=== PATIENT | female | born 1975 | race Caucasian/White ===

== ENCOUNTER 2019-09-18 17:46 | Emergency (ER) | payer OTHER, SELFPAY ==
[2019-09-18 17:50] VITALS: BP 130/88; PULSE 82; RESP 19; TEMP 36.8; O2SAT 100
[2019-09-18] MEDS: KETOROLAC 15 MG/ML VIAL (*BKC) IV PUSH (18:35)
[2019-09-18] MEDS: SODIUM CHLORIDE 0.9% IV 1,000 ML 999 ML IV CONT (18:35)
[2019-09-18] MEDS: ONDANSETRON INJ 4 MG/2 ML VIAL IV PUSH (18:35)
--- NOTE | 2019-09-18 19:15 | ED.HA ---
HPI - Headache General Chief Complaint: Headache Stated Complaint: migraine Time Seen by Provider: 09/18/19 17:54 Source: patient Mode of arrival: ambulatory Limitations: no limitations History of Present Illness HPI Narrative: Patient with history of migraines presents with chief complaint of right temporal migraine that began at approximately 3 AM this morning. Patient states that she has a history of migraines that presented various areas in his medicine is different than others. Patient denies this time sensitivity to sample reports history of January. Patient denies any changes to vision or hearing. Patient reports some nausea and vomiting. Patient states she takes Topamax daily but she took Imitrex which did not relieve her symptoms. Patient states she also took Tylenol. Patient states she has been laying around a lot today so she also has muscle stiffness to the left side of her neck and shoulder. Patient denies chest pain, shortness of breath, weakness, or any other symptoms.She denies any head injury or impact. Related Data Home Medications Medication Instructions Recorded Confirmed topiramate [Topamax] 50 mg PO TID 09/18/19 09/18/19 Allergies Allergy/AdvReac Type Severity Reaction Status Date / Time amoxicillin Allergy Hives Verified 09/18/19 17:53 Review of Systems Review of Systems: Narrative: CONSTITUTIONAL: Denies fever, chills, or sweats. EYES: Reports photophobic Denies visual changes, redness, or discharge. ENT: Denies rhinorrhea, congestion, sore throat, or otalgia. CARDIOVASCULAR: Denies chest pain, palpitations, or edema. RESPIRATORY: Denies cough or dyspnea. GASTROINTESTINAL: Reports nausea and vomiting Denies abdominal pain or diarrhea. GENITOURINARY: Denies dysuria or hematuria. SKIN: Denies rash or itching. MUSCULOSKELETAL: Denies back pain, joint pain, or myalgia. NEUROLOGIC: Reports headache, Denies numbness, dizziness, or weakness. PSYCHIATRIC: Denies anxiety or depression. FOR[facility]LY [facility], [facility] Past Medical History Medical History (Updated 09/18/19 @ 19:23 by Damián Barger PA-C) Migraines Social History Social History Gender identity (if verbalized by the patient): Female Exam Narrative: Exam Narrative: GENERAL: Well-appearing, well-nourished, and in no acute distress. Sheilding eyes from light. HEAD: Normocephalic, atraumatic. EYES: PERRLA and EOMI. ENT: Nares clear, no rhinorrhea or epistaxis. Mucous membranes moist. Oropharynx without tonsillar hypertrophy exudate or other lesions. Bilateral TMs pearly sutton nonbulging CHEST: Clear to auscultation. No respiratory distress. No wheezes rales or rhonchi HEART: Regular rate and rhythm. EXTREMITIES: Normal range of motion. No edema. SKIN: Warm, dry, no rash. NEURO: No focal deficits. Alert and oriented x3. PSYCH: Normal mood and affect. Course Vital Signs Vital signs: Vital Signs Temperature 98.3 F 09/18/19 17:50 Pulse Rate 82 09/18/19 17:50 Respiratory Rate 19 09/18/19 17:50 Blood Pressure 130/88 09/18/19 17:50 Pulse Oximetry 100 09/18/19 17:50 Temperature 98.3 F 09/18/19 17:50 Pulse Rate 82 09/18/19 17:50 Respiratory Rate 19 09/18/19 17:50 Blood Pressure 130/88 09/18/19 17:50 Pulse Oximetry 100 09/18/19 17:50 MDM - Headache MDM Narrative Medical decision making narrative: Patient verbalized that her migraine has resolved. Patient states she is ready to be discharged home at this time. Discussed patient taking her daily migraine medications and migraine abortive medications. Instructed patient to return to emergency department if she develops any emergent symptoms. Differential Diagnosis Differential diagnosis: Likely migraine, tension headache, subarachnoid hemorrhage, meningitis and postconcussion syndrome Discharge Plan Discharge Clinical Impression: Migraines Qualifiers: Migraine type: without aura Status migrainosus presence: without status migrainosus Intractability: not intracta
== END 2019-09-18 20:31 | disposition home or self-care (01) ==
PROVIDERS: Emergency Provider Emergency Medicine
DX: G43.009 Migraine without aura, not intractable, without status migrainosus (principal)
CPT/HCPCS: 96361; 96374; 96375; 99284; J1200; J1885; J2405; J7030

== ENCOUNTER 2021-10-11 06:44 | Emergency (ER) | payer OTHER, SELFPAY ==
[2021-10-11] VITALS (100 sets, daily range): BP systolic 119–156; BP diastolic 87–123; PULSE 70–112; RESP 7–31; TEMP 36.8; O2SAT 94–100
--- NOTE | ~2021-10-11 | XR_ITS ---
EXAMINATION: XR chest 1V portable EXAM DATE: 10/11/2021 16:05 INDICATION: Left-sided chest pain. TECHNIQUE: Portable AP frontal chest x-ray was obtained. There is no prior study for comparison. FINDINGS: The lungs are clear. There are no pleural effusions. The cardiomediastinal silhouette is within normal limits. There is no pneumothorax suspected. The bones and soft tissues are unremarkab le. IMPRESSION: No acute cardiopulmonary findings. Reviewed, dictated and finalized at location A.
--- NOTE | 2021-10-11 06:46 | ECG_ITS ---
Measurements Intervals [place] Rate: 91 P: 72 FL: 154 QRS: -14 QRSD: 85 T: 60 QT: 351 QTc: 433 Interpretive Statements SINUS RHYTHM BORDERLINE LEFTWARD AXIS CANNOT RULE OUT PREVIOUS ANTEROSEPTAL ABNORMAL ECG NO PREVIOUS ECG AVAILABLE FOR COMPARISON Electronically Signed On 10-11-2021 11:14:20 CDT by Glenn Ruiz M.D.
[2021-10-11 06:59] LABS: Basophils Absolute Auto 0.1 K/mm3 (0.0-0.1); Basophils Percent Auto 0.8 % (0.2-1.2); Eosinophils Absolute Auto 0.1 K/mm3 (0-0.3); Eosinophils Percent Auto 1.4 % (0-4.4); Hematocrit 39.9 % (37.0-47.0); Hemoglobin 13.3 g/dL (12.0-15.0); Immature Granulocyte Absolute 0.02 K/mm3 (0.00-0.031); Immature Granulocyte Percent A 0.3 % (0-0.5); Lymphocytes Absolute Auto 1.64 K/mm3 (0.9-3.2); Lymphocytes Percent Auto 22.9 % (18.3-44.2); Mean Corpuscular HGB Conc 33.3 g/dl (32-36); Mean Corpuscular Hemoglobin 31.9 pg (26-34); Mean Corpuscular Volume 95.7 fl (80-100); Mean Platelet Volume 9.8 fl (7.4-10.4); Monocytes Absolute Auto 0.8 K/mm3 (0.1-0.6); Monocytes Percent Auto 11.6 % (2.6-8.5); Neutrophils Absolute Auto 4.5 K/mm3 (1.3-6.7); Platelet Count Result 262 k/mm3 (150-375); Red Blood Count 4.17 M/mm3 (4.2-5.4); Red Cell Distribution Width 12.4 % (11.5-14.5); White Blood Count 7.2 K/mm3 (4.5-10.0)
[2021-10-11] MEDS: ASPIRIN 81 MG CHEWABLE TABLET 324 MG PO (07:00)
[2021-10-11 07:08] LABS: Alanine Aminotransferase 23 U/L (4-35); Albumin Level 4.5 g/dL (3.5-5.1); Alkaline Phosphatase 57 U/L (38-126); Anion Gap 9 mmol/L (8-16); Aspartate Amino Transferase 30 U/L (14-36); Bilirubin,Total 0.3 mg/dL (0.2-1.3); Blood Urea Nitrogen 20 mg/dL (7-17); Carbon Dioxide 26 mmol/L (22-30); Chloride 103 mmol/L (98-107); Estimated CRCL calculation 46 ml/min; Estimated Glomerular Filt Rate 53; Glucose 104 mg/dL (65-110); Potassium 3.6 mmol/L (3.4-5.0); Sodium 138 mmol/L (137-145)
--- NOTE | 2021-10-11 07:18 | ED.CHESTPAIN ---
HPI - Chest Pain General Chief Complaint: Chest Pain <Oj Mcmahon DO - Last Filed: 10/11/21 18:07> Stated Complaint: chest pain <Oj Mcmahon DO - Last Filed: 10/11/21 18:07> Time Seen by Provider: 10/11/21 07:02 <Oj Mcmahon DO - Last Filed: 10/11/21 18:07> Source: RN notes reviewed <Oj Mcmahon DO - Last Filed: 10/11/21 18:07> History of Present Illness HPI narrative: Patient presents to emergency department from home for chest pain. Patient states symptoms began at approximately 530 this morning the pain is located in the left side of the chest and does not radiate described as a pressure states the pain is improved from prior but is still present states nothing makes the pain better or worse she states the pain does cause some shortness of breath and become severe. She denies any fevers or chills, cough, abdominal pain, nausea vomiting or any other symptoms. Patient does state that she had an episode of chest pain in September and at that time had not gone to the hospital to follow-up with her PCP PCP did an EKG and recommend she see cardiology and she saw Dr. Sanders at [facility]. From discussed with the patient sounds like she had an echo and is now scheduled to be getting a stress test but has not gotten stress test yet <Oj Mcmahon DO - Last Filed: 10/11/21 18:07> Related Data Home Medications: Home Medications Medication Instructions Recorded Confirmed topiramate [Topamax] 50 mg PO TID 09/18/19 10/11/21 <Oj Mcmahon DO - Last Filed: 10/11/21 18:07> Allergies/Adverse Reactions: Allergies Allergy/AdvReac Type Severity Reaction Status Date / Time amoxicillin Allergy Hives Verified 10/11/21 06:59 <Oj Mcmahon DO - Last Filed: 10/11/21 18:07> Review of Systems Review of Systems: Gen.: Denies fevers or chills ENT: Denies congestion Respiratory: Ports shortness of breath with chest pain CV: See HPI GI: Denies abdominal pain nausea, emesis or diarrhea Musculoskeletal: Denies back pain or muscle pain Neuro: Denies numbness, tingling, weakness or focal weakness Skin: Denies rash Except as documented, all other systems reviewed and negative <Oj Mcmahon DO - Last Filed: 10/11/21 18:07> [facility] Past Medical History Medical History: Medical History Migraines <DO Filiberto Albright Last Filed: 10/11/21 18:07> Social History Social History: Social History (Updated 10/11/21 @ 07:30 by Oj Mcmahon DO) Smoking status: Never smoker Gender identity (if verbalized by the patient): Female <Oj Mcmahon DO - Last Filed: 10/11/21 18:07> Exam Narrative: APPEARANCE: No acute distress, nontoxic, resting in bed EYES: EOMI HEENT: Normocephalic, atraumatic, OMM RESPIRATORY: No respiratory distress Clear to auscultation bilaterally with no rhonchi wheezing or rales. CARDIOVASCULAR: Regular rate and rhythm without murmurs rubs or gallops. ABDOMINAL: Soft, nontender, nondistended, no rebound or guarding MUSCULOSKELETAl: Moves all extremities. No clubbing, cyanosis or edema. NEURO: Awake and alert. Following commands, speech normal, no focal deficits SKIN:: Warm, dry. No rashes lesions or abrasions PSYCHIATRIC: Normal affect/mood, <Oj Mcmahon DO - Last Filed: 10/11/21 18:07> Course Course Emergency Course: Called and discussed with the [employer] for the patient was seen in the office on October 07 at that time she had a stress test ordered but is not received it yet. At this time I will admit for plan for stress test Discussed with patient need for admission discussed with patient and would like transfer to [facility] discussed with Paxton Abraham who accepts patient <Oj Mcmahon DO - Last Filed: 10/11/21 18:07> Reevaluation(s) Reevaluation #1: Patient is still awaiting a bed and t
[2021-10-11 07:20] LABS: Troponin I < 0.012 ng/mL (0.000-0.034)
[2021-10-11] MEDS: NITROGLYCERIN SL 0.4 MG TABLET SUBLINGUAL (07:35)
[2021-10-11] MEDS: KETOROLAC 30 MG/ML VIAL (*BKC) IV PUSH (07:45)
[2021-10-11 07:58] LABS: D Dimer < 0.22 ug/mL (<0.48)
--- NOTE | 2021-10-11 09:43 | PC.NURSE ---
[facility] Transfer Center called for triage and basic information on patient. Waiting on COVID result and working on bed assignment for patient.
[2021-10-11 09:50] LABS: SARS-CoV-2 RNA PCR Negative
[2021-10-11 10:17] LABS: Troponin I < 0.012 ng/mL (0.000-0.034)
[2021-10-11 13:22] LABS: Troponin I < 0.012 ng/mL (0.000-0.034)
[2021-10-12] VITALS (22 sets, daily range): BP systolic 113–128; BP diastolic 83–96; PULSE 73–97; RESP 9–25; TEMP 36.9; O2SAT 98–100
--- NOTE | 2021-10-12 01:12 | PC.NURSE ---
0038-received call from Frantz at [facility] transfer line, gave updated information and report. pt assigned to bed 920-1 at [facility]. to call report to [phone]. Attending Dr. Abraham 0045- [facility] ALS unit setup with ETA @ 0130. Pt notified and signature of transfer form obtained.pt given information about room number and when EMS was scheduled to arrive. 0049- Rn called report to Heath VENTURA @ [facility] [place] for direct admit going to room 920-1. no additional questions at time report called. RN notified that when then RN came on shift it was noted that pt had coffee at the bedside that was at least half gone and had been eating. Rn verbalized understanding and acknowledged that pt may need different stress test in AM due to drinking coffee.
--- NOTE | 2021-10-12 01:21 | PC.NURSE ---
[facility] notifed that ETA pushed back to 0245.
== END 2021-10-12 04:48 | disposition short-term general hospital (02) ==
PROVIDERS: Emergency Medicine; Emergency Provider Emergency Medicine
DX: R07.89 Other chest pain (principal); Z20.822 Contact with and (suspected) exposure to COVID-19; R94.31 Abnormal electrocardiogram [ECG] [EKG]
CPT/HCPCS: 36415; 71045; 80053; 84484; 85025; 85380; 93005; 96374; 99285; A9270; C9803; J1885; U0003; U0005